=== PATIENT | male | born 1945 | race Caucasian/White ===

== ENCOUNTER 2021-03-31 20:05 | Inpatient (IN) | payer OTHER ==
[2021-03-31] MEDS ORDERED: FOLIC ACID INJECTION - 1 MG, THIAMINE HCL 100 MG, MULTIVIT INJECTION ADULT 10 ML in SOD... IVPB ONE (20:28)
[2021-03-31 21:18] LABS: VENOUS PCO2 47.2 mmHg (38-52); VENOUS PH 7.264 (7.310-7.410)
[2021-03-31 21:19] LABS: HEMATOCRIT 30.5 % (35.4-49); HEMOGLOBIN 10.2 GM/dL (11.7-16.9); MCH 30.7 pg (25.7-33.7); MCHC 33.4 g/dl (32.0-35.9); MEAN CELL VOLUME 91.8 fl (80-96); MEAN PLT VOLUME 8.3 fl (7.5-11.1); PLATELET COUNT 452 10^3/uL (134-434); RBC 3.32 M/mm3 (4.00-5.60); RDW 13.8 % (11.9-15.9); WHITE BLOOD COUNT 16.1 K/mm3 (4.0-10.0)
[2021-03-31] MEDS ORDERED: KETOROLAC TROMETHAMINE 30 MG/1 ML VIAL IVPUSH ONE (21:24)
[2021-03-31] MEDS ORDERED: LIDOCAINE 5% TOPICAL PATCH TP ONE (21:24)
[2021-03-31 21:27] LABS: INR 1.33 (0.83-1.09); PROTHROMBIN TIME (PATIENT) 15.3 SEC (9.7-13.0)
[2021-03-31 21:29] LABS: ACTIVATED PTT 28.5 SECONDS (25.2-36.5)
[2021-03-31] MEDS ORDERED: KETOROLAC TROMETHAMINE 30 MG/1 ML VIAL ONE (21:39)
[2021-03-31] MEDS ORDERED: LIDOCAINE 5% TOPICAL PATCH ONE (21:39)
[2021-03-31] MEDS ORDERED: ONDANSETRON 4 MG/2 ML VIAL IVPUSH ONE (21:39)
[2021-03-31 21:52] LABS: CALCIUM 7.9 mg/dL (8.5-10.1)
[2021-03-31 21:53] LABS: ALBUMIN 2.3 g/dl (3.4-5.0); BLOOD UREA NITROGEN 32.9 mg/dL (7-18)
[2021-03-31 21:56] LABS: CREATININE 1.3 mg/dL (0.55-1.3)
[2021-03-31 21:57] LABS: TOT PROT 5.2 g/dl (6.4-8.2)
[2021-03-31 21:58] LABS: BILIRUBIN,TOTAL 0.7 mg/dL (0.2-1)
[2021-03-31 22:09] LABS: EPI CELLS 8 /uL (0-25.1); HYALINE CASTS 1 /uL (0-3.1); PH,URINE 5.5 (5.0-8.0); URINE APPEARANCE CLEAR; URINE BACTERIA 14 /uL (0-1359); URINE BILIRUBIN 2+ (NEGATIVE); URINE COLOR DK YELLOW; URINE GLUCOSE (UA) NEGATIVE (NEGATIVE); URINE KETONE TRACE (NEGATIVE); URINE LEUK ESTERASE TRACE (NEGATIVE); URINE NITRITE NEGATIVE (NEGATIVE); URINE PROTEIN 1+ (NEGATIVE); URINE RBC 5 /uL (0-23.9); URINE WBC 4 /uL (0-25.8)
[2021-03-31 22:36] LABS: URINE CRYSTALS FEW /hpf
[2021-03-31 22:39] LABS: ANISOCYTOSIS 2+; MACROCYTOSIS 0; OVALOCYTE 1+; PLATELET ESTIMATE NORMAL; TARGET CELLS 1+
[2021-03-31] MEDS ORDERED: VANCOMYCIN 1 GM in D5W (PRE-DOCKED) 1,000 MG/250 ML IVPB ONE (22:41)
[2021-03-31] MEDS ORDERED: CEFEPIME HCL/D5W 2 GM/50 ML BAG IVPB ONE (22:41)
[2021-03-31] MEDS ORDERED: ASPIRIN 81 MG CHEWABLE TABLETS PO ONE (22:44)
[2021-03-31] MEDS ORDERED: CEFEPIME 2 GM/100 ML BAG IVPB ONE (22:58)
[2021-03-31] MEDS ORDERED: VANCOMYCIN 1 GRAM (PRE-DOCKED) 1,000 MG/250 ML BAG IVPB ONE (23:07)
[2021-03-31] MEDS ORDERED: ASPIRIN 81 MG CHEWABLE TABLETS ONE (23:08)
[2021-04-01] MEDS ORDERED: POLYETHYLENE GLYCOL (HEALTHYLAX) 3350 17 GM PACKET PO PRN (05:11)
[2021-04-01] MEDS ORDERED: DICLOFENAC SODIUM 25 MG TABLET.DR PO PRN (05:39)
[2021-04-01] MEDS ORDERED: TIZANIDINE HCL 4 MG TABLET PO PRN (05:39)
[2021-04-01 08:21] LABS: BASO % 0.6 % (0-2.0); EOS % 0.9 % (0-4.5); HEMATOCRIT 25.8 % (35.4-49); HEMOGLOBIN 8.4 GM/dL (11.7-16.9); LYMPH % 4.9 % (8-40); MCH 30.4 pg (25.7-33.7); MCHC 32.7 g/dl (32.0-35.9); MEAN CELL VOLUME 93.1 fl (80-96); MEAN PLT VOLUME 8.3 fl (7.5-11.1); MONO % 4.1 % (3.8-10.2); NEUT % 89.5 % (42.8-82.8); PLATELET COUNT 383 10^3/uL (134-434); RBC 2.77 M/mm3 (4.00-5.60); RDW 14.2 % (11.9-15.9); WHITE BLOOD COUNT 15.7 K/mm3 (4.0-10.0)
[2021-04-01] MEDS ORDERED: CEFEPIME HCL/D5W 2 GM/50 ML BAG IVPB SCH ×3 (10:00→23:00)
[2021-04-01] MEDS ORDERED: ESCITALOPRAM OXALATE 10 MG TABLET ONE (10:02)
[2021-04-01 10:11] LABS: CALCIUM 7.5 mg/dL (8.5-10.1)
[2021-04-01 10:12] LABS: BLOOD UREA NITROGEN 35.4 mg/dL (7-18)
[2021-04-01] MEDS: ESCITALOPRAM OXALATE 20 MG TABLET PO SCH (10:12)
[2021-04-01] MEDS: MULTIVITAMINS (DAILY MVI) TABLET (FP) PO SCH (10:12)
[2021-04-01] MEDS: ENOXAPARIN NA (PORCINE) 40 MG/0.4 ML DISP.SYRIN SQ SCH (10:12)
[2021-04-01 10:15] LABS: CREATININE 1.3 mg/dL (0.55-1.3)
[2021-04-01] MEDS: LIDOCAINE PATCH REMOVAL MC SCH ×3 (10:33→21:35)
[2021-04-01] MEDS: DOCUSATE SODIUM 100 MG CAPSULE (FP) PO SCH ×3 (10:34→21:27)
[2021-04-01] MEDS ORDERED: VANCOMYCIN 1 GM in D5W (PRE-DOCKED) 1,000 MG/250 ML IVPB SCH (12:00)
[2021-04-01] MEDS: SODIUM CHLORIDE 1,000 ML IV SCH (13:13)
[2021-04-01] MEDS ORDERED: IRON SUCROSE INJECTION 300 MG in SODIUM CHLORIDE 235 ML IVPB ONE (15:47)
[2021-04-01] MEDS: oxyCODONE HCL 5 MG TABLET PO PRN (15:58)
[2021-04-01] MEDS ORDERED: DEXTROSE 5%-WATER 100 ML IVPB ONE (17:19)
[2021-04-01] MEDS: CEFTRIAXONE 2 GM in DEXTROSE 5%-WATER 2 GM/100 ML BAG IVPB SCH (17:23)
[2021-04-01] MEDS: ACETAMINOPHEN 325 MG TABLET (FP) PO PRN (21:26)
[2021-04-02] MEDS: oxyCODONE HCL 5 MG TABLET PO PRN (01:58)
[2021-04-02] MEDS: DOCUSATE SODIUM 100 MG CAPSULE (FP) PO SCH ×3 (05:30→21:27)
[2021-04-02 08:48] LABS: HEMATOCRIT 27.4 % (35.4-49); HEMOGLOBIN 8.8 GM/dL (11.7-16.9); MCH 29.9 pg (25.7-33.7); MEAN CELL VOLUME 93.5 fl (80-96); MEAN PLT VOLUME 9.5 fl (7.5-11.1); PLATELET COUNT 374 10^3/uL (134-434); RBC 2.93 M/mm3 (4.00-5.60); RDW 14.4 % (11.9-15.9)
[2021-04-02 09:14] LABS: CALCIUM 7.6 mg/dL (8.5-10.1)
[2021-04-02 09:15] LABS: BLOOD UREA NITROGEN 24.2 mg/dL (7-18)
[2021-04-02 09:18] LABS: CREATININE 0.9 mg/dL (0.55-1.3)
[2021-04-02] MEDS ORDERED: ESCITALOPRAM OXALATE 10 MG TABLET ONE (09:57)
[2021-04-02] MEDS ORDERED: DEXTROSE 5%-WATER 100 ML IVPB ONE (09:57)
[2021-04-02] MEDS: ESCITALOPRAM OXALATE 20 MG TABLET PO SCH (10:48)
[2021-04-02] MEDS: CEFTRIAXONE 2 GM in DEXTROSE 5%-WATER 2 GM/100 ML BAG IVPB SCH (10:49)
[2021-04-02] MEDS: MULTIVITAMINS (DAILY MVI) TABLET (FP) PO SCH (10:49)
[2021-04-02] MEDS: ENOXAPARIN NA (PORCINE) 40 MG/0.4 ML DISP.SYRIN SQ SCH ×2 (10:50→10:59)
[2021-04-02] MEDS: SODIUM CHLORIDE 1,000 ML IV SCH (11:00)
[2021-04-02] MEDS: ACETAMINOPHEN 325 MG TABLET (FP) PO PRN (17:04)
[2021-04-02] MEDS ORDERED: AZITHROMYCIN 250 MG TABLET PO ONE (19:00)
[2021-04-02] MEDS: ALPRAZolam 1 MG TABLET PO PRN (22:31)
[2021-04-03] MEDS: DOCUSATE SODIUM 100 MG CAPSULE (FP) PO SCH ×3 (05:45→22:27)
[2021-04-03] MEDS: ACETAMINOPHEN 325 MG TABLET (FP) PO PRN (07:04)
[2021-04-03] MEDS ORDERED: ESCITALOPRAM OXALATE 10 MG TABLET ONE (09:26)
[2021-04-03] MEDS ORDERED: DEXTROSE 5%-WATER 100 ML IVPB ONE (09:26)
[2021-04-03] MEDS: AZITHROMYCIN 250 MG TABLET PO SCH (09:43)
[2021-04-03] MEDS: MULTIVITAMINS (DAILY MVI) TABLET (FP) PO SCH (09:43)
[2021-04-03] MEDS: ESCITALOPRAM OXALATE 20 MG TABLET PO SCH (09:43)
[2021-04-03] MEDS: CEFTRIAXONE 2 GM in DEXTROSE 5%-WATER 2 GM/100 ML BAG IVPB SCH (09:44)
[2021-04-03] MEDS: ENOXAPARIN NA (PORCINE) 40 MG/0.4 ML DISP.SYRIN SQ SCH (09:45)
[2021-04-03 13:22] VITALS: BMI 15.5
[2021-04-03] MEDS: SODIUM CHLORIDE 1,000 ML IV SCH (14:01)
[2021-04-03] MEDS: oxyCODONE HCL 5 MG TABLET PO PRN (14:15)
[2021-04-03] MEDS: PANTOPRAZOLE 40 MG TABLET PO SCH (16:18)
[2021-04-03] MEDS ORDERED: INSULIN (NOVOLOG) ASPART 100 UNITS/ML 10ML VIAL ONE (18:20)
[2021-04-04] MEDS: ALPRAZolam 1 MG TABLET PO PRN ×2 (01:14→21:47)
[2021-04-04] MEDS: DOCUSATE SODIUM 100 MG CAPSULE (FP) PO SCH ×3 (05:52→21:06)
[2021-04-04] MEDS ORDERED: DEXTROSE 5%-WATER 100 ML IVPB ONE (09:36)
[2021-04-04] MEDS ORDERED: ESCITALOPRAM OXALATE 10 MG TABLET ONE (09:36)
[2021-04-04] MEDS: PANTOPRAZOLE 40 MG TABLET PO SCH (09:40)
[2021-04-04] MEDS: AZITHROMYCIN 250 MG TABLET PO SCH (09:40)
[2021-04-04] MEDS: MULTIVITAMINS (DAILY MVI) TABLET (FP) PO SCH (09:40)
[2021-04-04] MEDS: ESCITALOPRAM OXALATE 20 MG TABLET PO SCH (09:40)
[2021-04-04] MEDS: CEFTRIAXONE 2 GM in DEXTROSE 5%-WATER 2 GM/100 ML BAG IVPB SCH (09:41)
[2021-04-04] MEDS: ENOXAPARIN NA (PORCINE) 40 MG/0.4 ML DISP.SYRIN SQ SCH ×3 (09:42→10:14)
[2021-04-04 10:35] LABS: HEMATOCRIT 23.5 % (35.4-49); HEMOGLOBIN 7.7 GM/dL (11.7-16.9); MCH 30.4 pg (25.7-33.7); MCHC 32.8 g/dl (32.0-35.9); MEAN CELL VOLUME 92.8 fl (80-96); MEAN PLT VOLUME 9.4 fl (7.5-11.1); PLATELET COUNT 356 10^3/uL (134-434); RBC 2.53 M/mm3 (4.00-5.60); RDW 13.9 % (11.9-15.9); WHITE BLOOD COUNT 13.4 K/mm3 (4.0-10.0)
[2021-04-04 11:08] LABS: BLOOD UREA NITROGEN 14.4 mg/dL (7-18); CALCIUM 7.6 mg/dL (8.5-10.1)
[2021-04-04 11:12] LABS: CREATININE 0.8 mg/dL (0.55-1.3)
[2021-04-04] MEDS: SODIUM CHLORIDE 1,000 ML IV SCH (13:27)
[2021-04-04] MEDS ORDERED: SODIUM PHOSPHATE/NA BIPHOS 133 ML ENEMA PR ONE (14:24)
[2021-04-04] MEDS: POTASSIUM CHLORIDE TABS 10 MEQ TABLET.ER (FP) PO ONE ×2 (15:56→16:03)
[2021-04-04] MEDS: oxyCODONE HCL 5 MG TABLET PO PRN (17:34)
[2021-04-04] MEDS: DEXTROSE 5%-0.45% SALINE 1,000 ML IV SCH (19:49)
[2021-04-05] MEDS: DOCUSATE SODIUM 100 MG CAPSULE (FP) PO SCH ×3 (06:17→22:23)
[2021-04-05] MEDS: oxyCODONE HCL 5 MG TABLET PO PRN (07:45)
[2021-04-05 08:21] LABS: HEMATOCRIT 25.4 % (35.4-49); HEMOGLOBIN 8.3 GM/dL (11.7-16.9); MCH 30.3 pg (25.7-33.7); MCHC 32.8 g/dl (32.0-35.9); MEAN CELL VOLUME 92.7 fl (80-96); PLATELET COUNT 315 10^3/uL (134-434); RBC 2.74 M/mm3 (4.00-5.60); RDW 14.1 % (11.9-15.9); WHITE BLOOD COUNT 11.6 K/mm3 (4.0-10.0)
[2021-04-05 08:46] LABS: BLOOD UREA NITROGEN 14.5 mg/dL (7-18); CALCIUM 7.9 mg/dL (8.5-10.1)
[2021-04-05 08:50] LABS: CREATININE 0.8 mg/dL (0.55-1.3)
[2021-04-05] MEDS ORDERED: ESCITALOPRAM OXALATE 10 MG TABLET ONE (08:51)
[2021-04-05] MEDS ORDERED: IRON SUCROSE INJECTION 200 MG in SODIUM CHLORIDE 90 ML IVPB ONE (10:00)
[2021-04-05 10:22] LABS: BILIRUBIN,DIRECT 0.3 mg/dL (0.0-0.2)
[2021-04-05 10:24] LABS: BILIRUBIN,TOTAL 0.5 mg/dL (0.2-1); TOT PROT 4.8 g/dl (6.4-8.2)
[2021-04-05 10:28] LABS: ALBUMIN 1.7 g/dl (3.4-5.0)
[2021-04-05] MEDS: CEFTRIAXONE 2 GM in DEXTROSE 5%-WATER 2 GM/100 ML BAG IVPB SCH (10:59)
[2021-04-05] MEDS: POLYETHYLENE GLYCOL (HEALTHYLAX) 3350 17 GM PACKET PO SCH (13:21)
[2021-04-05] MEDS: ESCITALOPRAM OXALATE 20 MG TABLET PO SCH (13:21)
[2021-04-05] MEDS: ENOXAPARIN NA (PORCINE) 40 MG/0.4 ML DISP.SYRIN SQ SCH (13:22)
[2021-04-05] MEDS: PANTOPRAZOLE 40 MG TABLET PO SCH (13:22)
[2021-04-05] MEDS: MULTIVITAMINS (DAILY MVI) TABLET (FP) PO SCH (13:22)
[2021-04-05] MEDS: AZITHROMYCIN 250 MG TABLET PO SCH (13:23)
[2021-04-05] MEDS: CEFUROXIME AXETIL 500 MG TABLET PO SCH ×2 (13:50→18:27)
[2021-04-05] MEDS: DEXTROSE 5%-0.45% SALINE 1,000 ML IV SCH (14:00)
[2021-04-05] MEDS: ALPRAZolam 1 MG TABLET PO PRN (22:24)
[2021-04-05] MEDS: OLANZapine 2.5 MG TABLET PO SCH (22:26)
[2021-04-06] MEDS: DOCUSATE SODIUM 100 MG CAPSULE (FP) PO SCH ×3 (06:27→21:51)
[2021-04-06] MEDS: CEFUROXIME AXETIL 500 MG TABLET PO SCH ×2 (08:40→17:31)
[2021-04-06 08:51] LABS: HEMOGLOBIN 7.9 GM/dL (11.7-16.9); MCH 30.5 pg (25.7-33.7); MCHC 32.9 g/dl (32.0-35.9); MEAN CELL VOLUME 92.8 fl (80-96); MEAN PLT VOLUME 8.4 fl (7.5-11.1); PLATELET COUNT 329 10^3/uL (134-434); RBC 2.59 M/mm3 (4.00-5.60); RDW 14.4 % (11.9-15.9); WHITE BLOOD COUNT 10.3 K/mm3 (4.0-10.0)
[2021-04-06 09:21] LABS: CALCIUM 8.1 mg/dL (8.5-10.1)
[2021-04-06 09:22] LABS: ALBUMIN 1.7 g/dl (3.4-5.0); CREATININE 0.9 mg/dL (0.55-1.3)
[2021-04-06 09:23] LABS: BILIRUBIN,TOTAL 0.4 mg/dL (0.2-1); TOT PROT 4.9 g/dl (6.4-8.2)
[2021-04-06] MEDS: ENOXAPARIN NA (PORCINE) 40 MG/0.4 ML DISP.SYRIN SQ SCH ×2 (10:02→10:07)
[2021-04-06] MEDS: POLYETHYLENE GLYCOL (HEALTHYLAX) 3350 17 GM PACKET PO SCH (10:02)
[2021-04-06] MEDS: PANTOPRAZOLE 40 MG TABLET PO SCH (10:03)
[2021-04-06] MEDS: ESCITALOPRAM OXALATE 10 MG TABLET PO SCH (10:03)
[2021-04-06] MEDS: MULTIVITAMINS (DAILY MVI) TABLET (FP) PO SCH (10:03)
[2021-04-06] MEDS: DEXTROSE 5%-0.45% SALINE 1,000 ML IV SCH ×2 (12:15→14:30)
[2021-04-06] MEDS: ALPRAZolam 1 MG TABLET PO PRN (14:33)
[2021-04-06] MEDS: ACETAMINOPHEN 325 MG TABLET (FP) PO PRN (17:31)
[2021-04-06] MEDS ORDERED: ALBUTEROL SO4 2.5/IPRATROPIUM 0.5 INH SOL 3 ML VIAL.NEB. NEB ONE (18:05)
[2021-04-06] MEDS: OLANZapine 2.5 MG TABLET PO SCH (21:51)
[2021-04-07] MEDS: ALPRAZolam 1 MG TABLET PO PRN (02:04)
[2021-04-07] MEDS: DOCUSATE SODIUM 100 MG CAPSULE (FP) PO SCH ×3 (05:45→14:27)
[2021-04-07 08:23] LABS: BASO % 0.5 % (0-2.0); EOS % 2.3 % (0-4.5); HEMATOCRIT 25.9 % (35.4-49); HEMOGLOBIN 8.5 GM/dL (11.7-16.9); MCH 30.4 pg (25.7-33.7); MEAN CELL VOLUME 92.1 fl (80-96); MEAN PLT VOLUME 8.3 fl (7.5-11.1); MONO % 4.2 % (3.8-10.2); PLATELET COUNT 350 10^3/uL (134-434); RBC 2.81 M/mm3 (4.00-5.60); WHITE BLOOD COUNT 10.4 K/mm3 (4.0-10.0)
[2021-04-07 08:46] LABS: CALCIUM 8.5 mg/dL (8.5-10.1)
[2021-04-07 08:47] LABS: ALBUMIN 1.9 g/dl (3.4-5.0); BLOOD UREA NITROGEN 11.1 mg/dL (7-18)
[2021-04-07 08:50] LABS: CREATININE 0.8 mg/dL (0.55-1.3)
[2021-04-07 08:51] LABS: TOT PROT 5.5 g/dl (6.4-8.2)
[2021-04-07 08:52] LABS: BILIRUBIN,TOTAL 0.5 mg/dL (0.2-1)
[2021-04-07] MEDS: ESCITALOPRAM OXALATE 10 MG TABLET PO SCH (11:10)
[2021-04-07] MEDS: MULTIVITAMINS (DAILY MVI) TABLET (FP) PO SCH (11:10)
[2021-04-07] MEDS: POLYETHYLENE GLYCOL (HEALTHYLAX) 3350 17 GM PACKET PO SCH (11:10)
[2021-04-07] MEDS: ENOXAPARIN NA (PORCINE) 40 MG/0.4 ML DISP.SYRIN SQ SCH (11:10)
[2021-04-07] MEDS: PANTOPRAZOLE 40 MG TABLET PO SCH (11:10)
[2021-04-07] MEDS: CEFUROXIME AXETIL 500 MG TABLET PO SCH ×2 (11:11→17:51)
[2021-04-07] MEDS: DEXTROSE 5%-0.45% SALINE 1,000 ML IV SCH (14:27)
[2021-04-07 17:07] VITALS: BP 115/55; PULSE 97; TEMP 98.8
== END 2021-04-07 20:12 | DRG 193 ==
LOC: JER 20:05 → JERBED 04-01 02:34 → J8W 04-01 08:57
PROVIDERS: ADMIT Hospitalist; ATTEND Family Medicine
DX: J18.9 Pneumonia, unspecified organism (principal); E43 Unspecified severe protein-calorie malnutrition; N17.9 Acute kidney failure, unspecified; R64 Cachexia; Z68.1 Body mass index [BMI] 19.9 or less, adult; I24.8 Other forms of acute ischemic heart disease; E87.2 Acidosis; E03.9 Hypothyroidism, unspecified; D64.9 Anemia, unspecified; I95.9 Hypotension, unspecified; R62.7 Adult failure to thrive; R41.82 Altered mental status, unspecified; D72.829 Elevated white blood cell count, unspecified; F41.9 Anxiety disorder, unspecified; R26.81 Unsteadiness on feet; R74.01 Elevation of levels of liver transaminase levels; M54.50 Low back pain, unspecified; R53.1 Weakness; D63.8 Anemia in other chronic diseases classified elsewhere; E86.0 Dehydration; D50.9 Iron deficiency anemia, unspecified; Z96.641 Presence of right artificial hip joint; Z96.612 Presence of left artificial shoulder joint; Z96.611 Presence of right artificial shoulder joint; Z88.8 Allergy status to other drugs, medicaments and biological substances
CPT/HCPCS: 36415; 70450-TC; 71045-TC-FY; 71250-TC; 76775-TC; 80048; 80053; 80076; 81003; 82550; 82607; 82746; 82803; 83540; 83550; 83605; 84484; 85025; 85027; 85045; 85610; 85730; 87040; 87070; 87077; 87086; 87205; 87899; 93005; 93010; 94640; 97116-GP; 97161-GP; 99285-25; C9803; J1756; U0003; U0005